=== PATIENT | female | born 1960 | race Hispanic/Latino ===

== ENCOUNTER 2023-01-07 10:24 | Emergency (ER) | payer OTHER ==
[~2023-01-07] VITALS: Ht 160 cm; Wt 102.1 kg
[2023-01-07 10:40] VITALS: O2SAT 99
[2023-01-07] MEDS ORDERED: METHOCARBAMOL 750 MG TAB PO ONE (11:15)
[2023-01-07] MEDS ORDERED: KETOROLAC TROMETHAMINE 30 MG/ML VIAL IM ONE (11:30)
[2023-01-07] MEDS ORDERED: METHOCARBAMOL750 MG PO (12:36)
== END 2023-01-07 14:41 | disposition home or self-care (01) ==
LOC: ER 10:30
DX: M54.16 Radiculopathy, lumbar region (principal); M48.061 Spinal stenosis, lumbar region without neurogenic claudication; I10 Essential (primary) hypertension
CPT/HCPCS: 72131; 99284; J1885